=== PATIENT | female | born 1960 | race Caucasian/White ===

== ENCOUNTER 2016-08-07 21:52 | Emergency (ER) | payer BC ==
[~2016-08-07] VITALS: Ht 167.6 cm; Wt 88.5 kg
[2016-08-07 22:29] LABS: BASOPHILS % (AUTO) 1 % (0-10); EOSINOPHILS # (AUTO) 0.2 10^3/uL (0.0-0.3); EOSINOPHILS % (AUTO) 2 % (0-10); LYMPHOCYTES # (AUTO) 1.8 X 10^3 (1.0-4.0); LYMPHOCYTES % (AUTO) 20 % (12-44); MEAN CORPUSCULAR HEMOGLOBIN 28 PG (25-34); MEAN CORPUSCULAR HGB CONC 33 G/DL (32-36); MEAN CORPUSCULAR VOLUME 86 FL (80-99); MEAN PLATELET VOLUME 10.2 FL (7.4-10.4); MONOCYTES # (AUTO) 0.7 X 10^3 (0.0-1.0); MONOCYTES % (AUTO) 8 % (0-12); NEUTROPHILS # (AUTO) 6.2 X 10^3 (1.8-7.8); NEUTROPHILS % (AUTO) 70 % (42-75); PLATELET COUNT 312 10^3/uL (130-400); RED BLOOD COUNT 4.76 10^6/uL (4.35-5.85); RED CELL DISTRIBUTION WIDTH 13.7 % (10.0-14.5); WHITE BLOOD COUNT 8.9 10^3/uL (4.3-11.0)
[2016-08-07] MEDS ORDERED: LIDOCAINE 2% VISCOUS 15 ML UDC PO ONE (22:30)
[2016-08-07] MEDS ORDERED: ANTACID SUSP 30 ML UDC (MYLANTA) PO ONE (22:30)
[2016-08-07] MEDS ORDERED: IBUPROFEN (22:34)
[2016-08-07 22:38] LABS: PROTHROMBIN TIME PATIENT 12.4 SEC (12.2-14.7)
[2016-08-08 00:10] VITALS: BP 112/76
[2016-08-08 01:01] LABS: MYOGLOBIN SERUM 34.4 NG/ML (10.0-92.0)
[2016-08-08 01:03] LABS: ALANINE AMINOTRANSFERASE 23 U/L (0-55); ALBUMIN 4.3 G/DL (3.2-4.5); ANION GAP 11 MMOL/L (5-14); ASPARTATE AMINO TRANSFERASE 20 U/L (5-34); BILIRUBIN,TOTAL 0.4 MG/DL (0.1-1.0); BLOOD UREA NITROGEN 24 MG/DL (7-18); BUN/CREATININE RATIO 25; CALCIUM 9.7 MG/DL (8.5-10.1); CARBON DIOXIDE 22 MMOL/L (21-32); CHLORIDE 108 MMOL/L (98-107); CREATININE SERUM 0.97 MG/DL (0.60-1.30); GFR ESTIMATED 60; GLUCOSE 131 MG/DL (70-105); LIPASE 45 U/L (8-78); MAGNESIUM 2.4 MG/DL (1.8-2.4); SODIUM 141 MMOL/L (135-145); TOTAL PROTEIN 7.1 G/DL (6.4-8.2)
--- NOTE | 2016-08-08 04:00 | ED Chest Pain ---
General Chief Complaint: Chest Pain Stated Complaint: STOMACH AND CHEST PAIN/SOA Nursing Triage Note: AMBULATORY TO ED WITH C/O STOMACH PROBLEMS WITH CHEST PAIN. STOMACH PAIN X 1 MO MARISELA AFTER MEALS WITH FEELING FULLNESS AND TIGHTNESS. NOW REPORTS ABOUT 2 WEEKS OF CHEST TIGHTNESS. NON-SPECIFIC DESCRIPTIONS. Nursing Sepsis Screen: No Definite Risk Source: patient Exam Limitations: no limitations History of Present Illness Time seen by provider: 22:03 Initial Comments This patient presents with complaints of upper abdominal pain and chest tightness. Upper abdominal pain (pain across the upper abdomen) has been present for about a month. Chest tightness has been present for 1-2 weeks. She takes ibuprofen daily for chronic pains and states this helps improve her chest discomfort. She states tramadol worsens her pain. She has been taking omeprazole without much benefit. Pain worsens and she gets a feeling of abdominal fullness after eating. She has nausea without vomiting. She has had one brief episode of shortness of air. She denies tobacco or alcohol use. She does have a history of acid reflux. She also reports problems with chronic fatigue and chronic pain from bulging disks. Allergies and Home Medications Allergies Coded Allergies: No Known Drug Allergies (Unverified , 08/07/16) Home Medications [Ibuprofen] , (Reported) Review of Systems Constitutional: no symptoms reported EENTM: No Symptoms Reported Respiratory: See HPI Cardiovascular: See HPI Gastrointestinal: See HPI Genitourinary: No Symptoms Reported Musculoskeletal: no symptoms reported Skin: no symptoms reported Psychiatric/Neurological: No Symptoms Reported Endocrine: No Symptoms Reported Hematologic/Lymphatic: No Symptoms Reported Past Khlhdhp-Nhkdmw-Djfjrm Hx Patient Social History Alcohol Use: Denies Use Recreational Drug Use: No Smoking Status: Never a Smoker Recent Foreign Travel: No Contact w/Someone Who Travel: No Recent Infectious Disease Expo: No Recent Hopitalizations: No Seasonal Allergies Seasonal Allergies: No Surgeries HX Surgeries: Yes Surgeries: Adenoidectomy, Hysterectomy, Tonsillectomy Respiratory Hx Respiratory Disorders: No Cardiovascular Hx Cardiac Disorders: Yes Cardiac Disorders: Hypotension Neurological Hx Neurological Disorders: No Genitourinary Hx Genitourinary Disorders: No Gastrointestinal Hx Gastrointestinal Disorders: Yes Gastrointestinal Disorders: Gastroesophageal Reflux Musculoskeletal Hx Musculoskeletal Disorders: Yes Musculoskeletal Disorders: Chronic Back Pain (bulging disks) Endocrine Hx Endocrine Disorders: No HEENT HX ENT Disorders: No Cancer Hx Cancer: No Psychosocial Hx Psychiatric Problems: No Integumentary HX Skin/Integumentary Disorder: No Family Medical History Significant Family History: Heart Disease (coronary artery disease and atrial fibrillation) Physical Exam Vital Signs Vital Sign - Last 12Hours 08/07/16 21:58 Temp 99.0 Pulse 79 Resp 16 B/P (MAP) 123/74 Pulse Ox 95 O2 Delivery Room Air Capillary Refill : Less Than 3 Seconds General Appearance: No Apparent Distress, WD/WN HEENT: PERRL/EOMI, Normal ENT Inspection Neck: Normal Inspection Respiratory: Chest Non Tender, Lungs Clear, Normal Breath Sounds, No Accessory Muscle Use, No Respiratory Distress Cardiovascular: Regular Rate, Rhythm, No Edema, No Murmur, Normal Peripheral Pulses Gastrointestinal: Normal Bowel Sounds, Non Tender, Soft Extremity: Normal Inspection, Non Tender, No Calf Tenderness, No Pedal Edema, Other (negative Tyler) Neurologic/Psychiatric: Alert, Oriented x3, No Motor/Sensory Deficits, Normal Mood/Affect, sports marketing coordinator II-XII Norm as Tested Skin: Normal Color, Warm/Dry Progress/Results/Core Measures Results/Orders Lab Results Laboratory Tests Test 08/07/16 22:15 Range/Units White Blood Count 8.9 4.3-11.0 10^3/uL Red Blood Count 4.76 4.35-5.85 10^6/uL Hemoglobin 13.3 11.5-16.0 G/DL Hematocrit 41 35-52 % Mean Corpuscular Volume 86 80-99 FL Mean Corpuscular Hemoglobin 28 25-34 PG Mean Corpuscular Hemoglobin Concent 33 32-36 G/DL Red Cell Distribution Width 13.7 10.0-14.5 % Platelet Count 312 130-400 10^3/uL Mean Platelet Volume 10.2 7.4-10.4 FL Neutrophils (%) (Auto) 70 42-75 % Lymphocytes (%) (Auto) 20 12-44 % Monocytes (%) (Auto) 8 0-12 % Eosinophils (%) (Auto) 2 0-10 % Basophils (%) (Auto) 1 0-10 % Neutrophils # (Auto) 6.2 1.8-7.8 X 10^3 Lymphocytes # (Auto) 1.8 1.0-4.0 X 10^3 Monocytes # (Auto) 0.7 0.0-1.0 X 10^3 Eosinophils # (Auto) 0.2 0.0-0.3 10^3/uL Basophils # (Auto) 0.0 0.0-0.1 10^3/uL Prothrombin Time 12.4 12.2-14.7 SEC INR Comment 1.0 0.8-1.4 Activated Partial Thromboplast Time 26 24-35 SEC Sodium Level 141 135-145 MMOL/L Potassium Level 4.0 3.6-5.0 MMOL/L Chloride Level 108 H 98-107 MMOL/L Carbon Dioxide Level 22 21-32 MMOL/L Anion Gap 11 5-14 MMOL/L Blood Urea Nitrogen 24 H 7-18 MG/DL Creatinine 0.97 0.60-1.30 MG/DL Estimat Glomerular Filtration Rate 60 BUN/Creatinine Ratio 25 Glucose Level 131 H 70-105 MG/DL Calcium Level 9.7 8.5-10.1 MG/DL Magnesium Level 2.4 1.8-2.4 MG/DL Total Bilirubin 0.4 0.1-1.0 MG/DL Aspartate Amino Transf (AST/SGOT) 20 5-34 U/L Alanine Aminotransferase (ALT/SGPT) 23 0-55 U/L Alkaline Phosphatase 104 40-136 U/L Myoglobin 34.4 10.0-92.0 NG/ML Troponin I < 0.30 <0.30 NG/ML Total Protein 7.1 6.4-8.2 G/DL Albumin 4.3 3.2-4.5 G/DL Lipase 45 8-78 U/L My Orders Orders - ELIDA CAMARA MD Cbc With Automated Diff (08/07/16 22:21) Magnesium (08/07/16 22:21) Chest 1 View, Ap/Pa Only (08/07/16 22:21) Ekg Tracing (08/07/16 22:21) Cardiac Profile 1 (08/07/16 22:21) Comprehensive Metabolic Panel (08/07/16 22:21) Myoglobin Serum (08/07/16 22:21) Protime With Inr (08/07/16 22:21) Partial Thromboplastin Time (08/07/16 22:21) O2 (08/07/16 22:21) Monitor-Rhythm Ecg Trace Only (08/07/16 22:21) Saline Lock/Iv-Start (08/07/16 22:21) Lipase (08/07/16 22:21) Lidocaine 2% Viscous 15 Ml (Xylocaine Vi (08/07/16 22:30) Antacid Suspension (Mylanta Suspension (08/07/16 22:30) Medications Given in ED Current Medications Medications Dose Ordered Sig/Bassem Route Start Time Stop Time Status Last Admin Dose Admin Al Hydrox/Mg Hydrox/Simethicone 30 ml ONCE ONCE PO 08/07/16 22:30 08/07/16 22:31 DC 08/07/16 22:30 30 ML Lidocaine HCl 15 ml ONCE ONCE PO 08/07/16 22:30 08/07/16 22:31 DC 08/07/16 22:30 15 ML Vital Signs/I&O Vital Sign - Last 12Hours 08/07/16 08/07/16 08/08/16 21:58 21:58 00:10 Temp 99.0 98.2 Pulse 79 54 Resp 16 16 B/P (MAP) 123/74 Pulse Ox 95 95 O2 Delivery Room Air Room Air Blood Pressure Mean: 90 Progress Note : Progress Note GI cocktail did not improve symptoms. Workup was unremarkable. Patient was dismissed to continue workup as an outpatient. ECG Initial ECG Impression Date: August 07, 2016 Initial ECG Impression Time: 22:09 Initial ECG Rate: 71 Initial ECG Rhythm: Normal Sinus Initial ECG Intervals: Normal Initial ECG Impression: Normal Comment Normal sinus rhythm with no ST elevation or depression. No abnormal intervals or axis deviation. Diagnostic Imaging Diagonstic Imaging: Xray Plain Films/CT/US/NM/MRI: chest Comments Chest x-ray viewed by me. Report not yet available. No acute abnormalities appreciated. Departure Impression Impression: Primary Impression: Upper abdominal pain Additional Impression: Chest tightness Disposition: 01 HOME, SELF-CARE Condition: Improved Departure-Patient Inst. Decision time for Depature: 00:00 Referrals: MERRICK MARTINEZ DO (PCP) Primary Care Physician ELIDA CAMARA MD August 08, 2016 04:00
--- NOTE | 2016-08-08 06:59 | Diagnostic Imaging Report ---
INDICATION: Chest tightness. FINDINGS: Single view examination of the chest fails to reveal evidence of active parenchymal pathology or pleural effusion. The cardiac silhouette is normal. IMPRESSION: Negative chest. Dictated by: Dictated on workstation # [id number]
== END 2016-08-08 00:10 | disposition home or self-care (01) ==
LOC: EDUNIT# 21:52 → ER 21:54
DX: R10.10 Upper abdominal pain, unspecified (principal); R07.89 Other chest pain; I10 Essential (primary) hypertension
CPT/HCPCS: 36415; 71010; 80053; 83690; 83735; 83874; 84484; 85025; 85610; 85730; 93005; 93041

== ENCOUNTER 2016-09-06 10:43 | Outpatient (RCR) | payer BC | END 2016-12-05 | disposition home or self-care (01) | LOC: CARD 10:43 | PROVIDERS: ATTEND Internal Medicine Interventional Cardiology | DX: R00.2 Palpitations (principal); R07.89 Other chest pain | CPT/HCPCS: 93225; 93226 ==

== ENCOUNTER → 2016-09-06 | Outpatient (CLI) | payer BC ==
[~2016-09-06] MED LIST: IBUPROFEN
--- NOTE | 2016-09-07 07:04 | STRESS TEST ---
DATE OF SERVICE: 09/06/2016 STRESS TEST REPORT PRIMARY PHYSICIAN: Dr. Burns. ORDERING PHYSICIAN: Dr. Damian Bennett. DIAGNOSES: Chest tightness, palpitations. PROCEDURE DETAIL: The patient was brought to the stress lab after informed consent was taken. A stress test was performed according to the standard [facility] protocol. Initial EKG showed sinus rhythm at 56 BPM. Blood pressure was 121/65 mmHg. The patient exercised for 9 minutes and 30 seconds and achieved 10.1 metabolic equivalents. The patient achieved 92% of maximum predicted heart rate response. Maximum heart rate was 152 BPM. Maximum blood pressure was 147/65 mmHg. The patient did not complain of any chest tightness, arrhythmias or any ST-T wave changes during the stress test. IMPRESSION AND CONCLUSION: 1. Exercise stress test is negative for ischemia. 2. Excellent functional capacity. 3. Normotensive response to exercise. Job ID: [id number] DocumentID: [id number] Dictated Date: 09/06/2016 12:40:59 Caseworker Protective Services Date: 09/06/2016 13:28:22 Dictated By: DU BENNETT MD
== END ==
LOC: CARD 10:39
PROVIDERS: ATTEND Internal Medicine Interventional Cardiology
DX: R07.89 Other chest pain (principal); R00.2 Palpitations
CPT/HCPCS: 93017

== ENCOUNTER → 2018-01-02 | Outpatient (CLI) | payer BC ==
[~2018-01-02] MED LIST changes: +CATHETER FLUSH 10 ML SYR IV PRN
--- NOTE | 2018-01-02 15:25 | Diagnostic Imaging Report ---
INDICATION: Right upper quadrant pain, dyspepsia.. FINDINGS: The patient was administered 5.08 mCi of Tc 99m Choletec and sequential imaging was performed over the right upper abdomen. There is progressive, homogeneous accumulation of radiotracer within the liver parenchyma. There is filling of the bile ducts and subsequent filling of the gallbladder. There is progressive clearance of activity from the liver parenchyma and accumulation of radiotracer within loops of small bowel. The patient was then administered a fatty meal, utilizing 8 ounces of Ensure. The gallbladder ejection fraction was calculated to be approximately 54%. (Normal values post fatty meal stimulation are 33% or greater.) IMPRESSION: 1. Hepatobiliary scan demonstrates a patent biliary tree. 2. Normal gallbladder ejection fraction of approximately 54%. Dictated by: Dictated on workstation # [id number]
== END ==
LOC: CARD 10:44
PROVIDERS: ATTEND Nurse Practitioner Family
DX: R10.11 Right upper quadrant pain (principal); R10.13 Epigastric pain
CPT/HCPCS: 78227

== ENCOUNTER → 2018-01-21 | Outpatient (CLI) | payer BC ==
[~2018-01-21] MED LIST changes: -CATHETER FLUSH 10 ML SYR IV PRN
== END ==
LOC: CARD 10:41
PROVIDERS: ATTEND Nurse Practitioner Family
DX: R01.1 Cardiac murmur, unspecified (principal); I07.1 Rheumatic tricuspid insufficiency
CPT/HCPCS: 93306

== ENCOUNTER → 2018-03-03 | Outpatient (CLI) | payer BC ==
--- NOTE | 2017-12-09 09:06 | Diagnostic Imaging Report ---
PROCEDURE: US Gallbladder. TECHNIQUE: Multiple real-time grayscale images were obtained over the right upper quadrant in various projections. INDICATION: Abdominal pain and pelvic pain with nausea. The liver is normal in size at 16.9 cm. No discrete liver mass is identified. The gallbladder is without stones or sludge. No wall thickening or biliary ductal dilatation is seen. The pancreas is unremarkable. The right kidney is unremarkable. There is no ascites. IMPRESSION: Unremarkable gallbladder ultrasound. Dictated by: Dictated on workstation # [id number]
--- NOTE | 2017-12-09 09:09 | Diagnostic Imaging Report ---
PROCEDURE: US Non-ob pelvis comp/trans. TECHNIQUE: Multiple realtime grayscale images were obtained of the pelvis in various projections endovaginally. Transabdominal imaging was also performed. INDICATION: Pelvic pain and nausea. Patient underwent hysterectomy five years ago. The uterus is surgically absent. Ovaries are not visualized. No adnexal mass is identified. No free fluid or fluid collection is seen. IMPRESSION: Status post hysterectomy. No adnexal mass or free fluid is identified. Dictated by: Dictated on workstation # [id number]
--- NOTE | 2018-03-03 13:56 | Diagnostic Imaging Report ---
INDICATION: Abdominal, pelvic pain. History of hysterectomy 5 to 7 years ago. TECHNIQUE: Multiple real time figueroa scale sonographic images were obtained of the pelvis, transabdominal and endovaginally. CORRELATION STUDY: None FINDINGS: The uterus not visualized, compatible with hysterectomy. A left ovary is not definitively localized. This is indeterminate as to reason, could be perhaps obscured by bowel. What appears to be right ovary approximately 2 x 1 x 1.2 cm. This has a generally unremarkable appearance but is fairly limited in visualization and assessment. There is suggestion of blood flow to the ovary. Definitive abnormal adnexal mass and/or pelvic fluid does not appear to be present. IMPRESSION: 1. Nonvisualization of the uterus, compatible with hysterectomy. 2. Nonvisualization of the left ovary. This could be owing to obscuration by bowel. Possibly surgical removal is not excluded. 3. Limited visualization of the right ovary, generally unremarkable in its appearance. Dictated by: Dictated on workstation # [id number]
== END ==
LOC: RAD 12-09 07:53
PROVIDERS: ATTEND Nurse Practitioner Family
DX: R10.2 Pelvic and perineal pain (principal); R11.0 Nausea; Z90.710 Acquired absence of both cervix and uterus
CPT/HCPCS: 76705; 76830; 76856

== ENCOUNTER → 2018-09-08 | Outpatient (CLI) | payer BC ==
[2018-09-08 16:01] LABS: BASOPHILS % (AUTO) 0 % (0-10); EOSINOPHILS # (AUTO) 0.1 10^3/uL (0.0-0.3); EOSINOPHILS % (AUTO) 2 % (0-10); HEMATOCRIT 40 % (35-52); HEMOGLOBIN 13.1 G/DL (11.5-16.0); LYMPHOCYTES # (AUTO) 1.3 X 10^3 (1.0-4.0); LYMPHOCYTES % (AUTO) 22 % (12-44); MEAN CORPUSCULAR HEMOGLOBIN 28 PG (25-34); MEAN CORPUSCULAR HGB CONC 33 G/DL (32-36); MEAN CORPUSCULAR VOLUME 86 FL (80-99); MONOCYTES # (AUTO) 0.4 X 10^3 (0.0-1.0); MONOCYTES % (AUTO) 6 % (0-12); NEUTROPHILS % (AUTO) 70 % (42-75); PLATELET COUNT 300 10^3/uL (130-400); RED CELL DISTRIBUTION WIDTH 13.6 % (10.0-14.5); WHITE BLOOD COUNT 5.8 10^3/uL (4.3-11.0)
[2018-09-08 16:51] LABS: BAND NEUTROPHILS 2 %; LYMPHOCYTES % (MANUAL) 20 %; MONOCYTES % (MANUAL) 7 %; NEUTROPHILS % (MANUAL) 69 %
[2018-09-08 16:52] LABS: BASOPHILS % (MANUAL) 0 %; EOSINOPHILS % (MANUAL) 2 %; RBC MORPH NORMAL
--- NOTE | 2018-09-09 09:27 | HISTORY AND PHYSICAL ---
DATE OF SERVICE: EGD HISTORY AND PHYSICAL HISTORY OF PRESENT ILLNESS: The patient is a 57-year-old white female referred by Dr. Tracy Navarro for EGD evaluation for epigastric and right upper quadrant abdominal pain. The patient reports that this has been going on for several years, but has been worse over the past 6 months. In November, she reports that she has pain after eating and even drinking within a minute or two. It does not usually wake her up from sleep. She has had no associated weight loss. Does have some intermittent diarrhea associated with periods of constipation, but has noted no melena or bright red blood per rectum. She has had associated fatigue and states that she is being worked up for "chronic Lyme's disease." She reportedly underwent panendoscopy a little over 2 years ago at which time, her colon was reportedly normal. She had a small hiatal hernia, but could not tell me if she had any evidence for erosive esophagitis. In November, she had a normal gallbladder ultrasound. In December, underwent HIDA scan, which revealed normal ejection fraction of 54% and the patient does not recall that the procedure have caused any abdominal pain or nausea after CCK injection. FAMILY HISTORY: Pertinent for mother who was diagnosed with colon cancer at the age of 70, of natural causes at the age of 91. She is not aware of any family history for other GI tract malignancies or King's esophagus. PAST SURGICAL HISTORY: She went total abdominal hysterectomy in 2010. She thinks that one ovary may have been left and transvaginal ultrasound in February of last year that did reveal what appeared to be a right unremarkable ovary and I could not find the left. SOCIAL HISTORY: She is , employed with no past smoking or any significant drinking history. REVIEW OF SYSTEMS: CONSTITUTIONAL: She denies any night sweats, chills, fever or change in weight. CARDIOVASCULAR: She denies palpitations, syncope, presyncope or chest discomfort. She had a normal exercise stress test three years ago and echocardiogram that revealed mild diastolic dysfunction, otherwise normal in 2018. GASTROINTESTINAL: As noted in the HPI. PULMONARY: She denies any cough, wheezing, shortness of breath, but does note some dyspnea on exertion. PHYSICAL EXAMINATION: GENERAL: Reveals a pleasant white female, weight of 198.6 pounds, BMI of 32. VITAL SIGNS: Blood pressure 120/80. HEENT: Unremarkable. She has a Mallampati class 2 oropharyngeal configuration. Sclerae nonicteric. No evidence for pallor is noted. CHEST: Clear to auscultation. CARDIOVASCULAR: Revealed a regular rate and rhythm without murmur, S3 or S4. ABDOMEN: Soft, supple. Epigastric right upper quadrant and left lower quadrant discomfort to palpation was noted without rebound or guarding. No mass or organomegaly was noted. Bowel sounds are positive. No bruits are noted. EXTREMITIES: Reveal no cyanosis, clubbing or edema. ASSESSMENT AND PLAN: For further evaluation of epigastric abdominal pain with only partial response to proton pump inhibitor therapy in the form of Prilosec, the patient is being set up for EGD evaluation. The procedure was discussed with the patient. The patient also pulled a picture on her phone of a CBC smear, which she was concerned revealed something abnormal like parasites or Lyme's in her blood. Apparently, she had been shown this picture by a so-called chronic Lyme's disease specialist. What it revealed were crenated red cells noted on the picture that just gave a periphery shot. I did take the liberty of getting a CBC with manual differential. This was normal with no evidence for parasites or any other abnormality with normal cell count, platelet count, etc. The patient was reassured. In review of her past medical record and evaluation, a discussion little over 45 minutes in [id number] care time spent. Job ID: [id number] DocumentID: [id number] Dictated Date: 09/09/2018 08:48:16 Study Assistant Date: 09/09/2018 09:14:12 Dictated By: DEVIN ANDRADE MD
== END ==
LOC: LAB 15:36
PROVIDERS: ATTEND Internal Medicine
DX: R53.83 Other fatigue (principal); R10.13 Epigastric pain
CPT/HCPCS: 36415; 85007; 85027

== ENCOUNTER 2018-09-19 05:38 | Outpatient (CLI) | payer BC ==
[~2018-09-19] VITALS: Ht 167.6 cm; Wt 88.5 kg
[2018-09-19] MEDS ORDERED: IBUP-1780 PO (12:09)
== END 2018-09-19 12:13 | disposition home or self-care (01) ==
LOC: PREOP 05:38
PROVIDERS: ATTEND Internal Medicine
DX: Z01.818 Encounter for other preprocedural examination (principal)

== ENCOUNTER 2018-09-26 07:22 | Day surgery (SDC) | payer BC ==
[~2018-09-26] VITALS: Ht 167.6 cm; Wt 88.5 kg
[~2018-09-26 07:22] MED LIST changes: +IBUP-1780 PO
[2018-09-26] MEDS ORDERED: LACTATED RINGERS 1,000 ML IV ONE (07:28)
[2018-09-26] MEDS ORDERED: proPOfol 200 MG/20 ML (DIPRIVAN) VIAL IV ONE ×2 (08:10→08:52)
[2018-09-26] MEDS ORDERED: LACTATED RINGERS 1,000 ML IV STA (08:11)
[2018-09-26 08:15] VITALS: BP 103/62
[2018-09-26] MEDS ORDERED: LIDOCAINE JELLY 2% 6 ML SYRINGE MM PRN (08:15)
[2018-09-26] MEDS ORDERED: HURRICAINE EXT TUBE (BENZOCAINE) XX PRN (08:15)
[2018-09-26] MEDS ORDERED: MIDAZOLAM 2 MG/2 ML (VERSED) VIAL ONE (08:32)
[2018-09-26] MEDS ORDERED: LIDOCAINE JELLY 2% 6 ML SYRINGE ONE (08:38)
[2018-09-26] MEDS ORDERED: HURRICAINE EXT TUBE (BENZOCAINE) ONE (08:38)
--- NOTE | 2018-09-26 08:41 | Pre-Op Note & Conscious Sedat ---
Pre-Operative Progress Note H&P Reviewed The H&P was reviewed, patient examined and no changes noted. Date H&P Reviewed: Sep 26, 2018 Time H&P Reviewed: 07:55 Conscious Sedation Pre-Proced ASA Score 2 For ASA 3 and 4: Consider anesthesia and medical clearance. Also, for patients with a history of failed moderate sedation consider anesthesia. Airway Lungs Heart ASA score ASA 1: a normal healthy patient ASA 2: a patient with a mild systemic disease (mid diabetes, controlled hypertension, obesity ASA 3: a patient with a severe systemic disease that limits activity (angina, COPD, prior Myocardial infarction) ASA 4: a patient with an incapacitating disease that is a constant threat to life (CHF, renal failure) ASA 5: a moribund patient not expected to survive 24 hrs. (ruptured aneurysm) ASA 6: a declared brain- patient whose organs are being harvested. For emergent operations, add the letter E after the classification Mallampati Classification Grade 2 Sedation Plan Analgesia, Amnesia, Plan communicated to team members, Discussed options with patient/fam, Discussed risks with patient/fam The patient is an appropriate candidate to undergo the planned procedure, sedation, and anesthesia. The patient immediately re-assessed prior to indication. DEVIN ANDRADE MD Sep 26, 2018 08:41
[2018-09-26 09:25] VITALS: BP 92/53
[2018-09-26 09:55] VITALS: BP 99/65
[2018-09-26 10:00] VITALS: BP 99/65
--- NOTE | 2018-09-26 13:12 | Anesthesia-General Post-Op ---
General Patient Condition Mental Status/LOC: Same as Preop Cardiovascular: Satisfactory Nausea/Vomiting: Absent Respiratory: Satisfactory Pain: Controlled Complications: Absent Post Op Complications Complications None Follow Up Care/Instructions Patient Instructions None needed. Anesthesia/Patient Condition Patient Condition Patient is doing well, no complaints, stable vital signs, no apparent adverse anesthesia problems. No complications reported per nursing. JAYY ZUÑIGA CRNA Sep 26, 2018 13:12
[2018-09-26] MEDS ORDERED: ONDANSETRON 4 MG/2 ML (SDV) Z0FRAN IVP PRN (14:45)
[2018-09-26] MEDS ORDERED: HYDROmorphone 2 MG/ML VIAL (DILAUDID) IV ONE (14:45)
--- NOTE | 2018-09-26 17:28 | OPERATIVE REPORT ---
DATE OF SERVICE: COLONOSCOPY SUMMARY INDICATION FOR THE PROCEDURE: Epigastric pain and fatigue. The patient was placed in the left lateral decubitus position. The endoscope was inserted in the oral cavity and under direct visualization, the esophagus was intubated. The endoscope was passed down the esophagus through the stomach and the second portion of the duodenum. Careful inspection was made as the endoscope was withdrawn. FINDINGS: The posterior pharynx, epiglottis, arytenoid aperture and true and false vocal cords were unremarkable in appearance. Photographic documentation was obtained. The proximal and mid esophagus were unremarkable. The gastroesophageal junction was proximally placed secondary to a moderate size hiatal hernia about 4-5 cm of the stomach being present above the level of the diaphragm. There was some mild erythema noted at the Z line and one shallow benign appearing ulcer was present involving 10% to 15% of the circumference qualifying for LA grade A erosive esophagitis without evidence to suggest King's change. Several biopsies were obtained and one biopsy for fungal culture and saline was submitted as well. The cardia and fundus of the stomach are unremarkable. There is some mild antral erythema, so biopsy was obtained from the antrum and submitted for Helicobacter. No evidence for peptic ulcer disease was noted. The pylorus, pyloric channel, duodenal bulb and second portion of the duodenum were unremarkable with normal villous architecture and no evidence for peptic ulcer disease. ASSESSMENT: Findings compatible with LA grade A erosive esophagitis are noted, likely due to a moderate size hiatal hernia. The patient stated that her epigastric pain had significantly improved after antibiotic therapy. It was advised that she go back on omeprazole considering erosive esophagitis changes and she sould remain on it indefinitely. She will need eradication of Helicobacter if it is noted on biopsy and there is also as noted above a fungal culture pending. Discussed the importance of non-medication reflux management as well elevating the head of the bed, not eating 3 or 4 hours before bedtime and portion controlling to effect weight loss. I thank you for the referral of this pleasant lady. Job ID: [id number] DocumentID: [id number] Dictated Date: 09/26/2018 11:10:51 Fire Fighting Equipment Specialist Date: 09/26/2018 17:28:15 Dictated By: DEVIN ANDRADE MD MTDD
--- NOTE | 2018-10-03 13:23 | HISTORY AND PHYSICAL ---
DATE OF SERVICE: 09/26/2018 EGD HISTORY AND PHYSICAL HISTORY OF PRESENT ILLNESS: The patient is a 57-year-old white female referred by Dr. Tracy Navarro for EGD evaluation for epigastric and right upper quadrant abdominal pain. The patient reports that this has been going on for several years, but has been worse over the past 6 months. In November, she reports that she has pain after eating and even drinking within a minute or two. It does not usually wake her up from sleep. She has had no associated weight loss. Does have some intermittent diarrhea associated with periods of constipation, but has noted no melena or bright red blood per rectum. She has had associated fatigue and states that she is being worked up for "chronic Lyme's disease." She reportedly underwent panendoscopy a little over 2 years ago at which time, her colon was reportedly normal. She had a small hiatal hernia, but could not tell me if she had any evidence for erosive esophagitis. In November, she had a normal gallbladder ultrasound. In December, underwent HIDA scan, which revealed normal ejection fraction of 54% and the patient does not recall that the procedure have caused any abdominal pain or nausea after CCK injection. FAMILY HISTORY: Pertinent for mother who was diagnosed with colon cancer at the age of 70, of natural causes at the age of 91. She is not aware of any family history for other GI tract malignancies or King's esophagus. PAST SURGICAL HISTORY: She went total abdominal hysterectomy in 2010. She thinks that one ovary may have been left and transvaginal ultrasound in February of last year that did reveal what appeared to be a right unremarkable ovary and I could not find the left. SOCIAL HISTORY: She is , employed with no past smoking or any significant drinking history. REVIEW OF SYSTEMS: CONSTITUTIONAL: She denies any night sweats, chills, fever or change in weight. CARDIOVASCULAR: She denies palpitations, syncope, presyncope or chest discomfort. She had a normal exercise stress test three years ago and echocardiogram that revealed mild diastolic dysfunction, otherwise normal in 2018. GASTROINTESTINAL: As noted in the HPI. PULMONARY: She denies any cough, wheezing, shortness of breath, but does note some dyspnea on exertion. PHYSICAL EXAMINATION: GENERAL: Reveals a pleasant white female, weight of 198.6 pounds, BMI of 32. VITAL SIGNS: Blood pressure 120/80. HEENT: Unremarkable. She has a Mallampati class 2 oropharyngeal configuration. Sclerae nonicteric. No evidence for pallor is noted. CHEST: Clear to auscultation. CARDIOVASCULAR: Revealed a regular rate and rhythm without murmur, S3 or S4. ABDOMEN: Soft, supple. Epigastric right upper quadrant and left lower quadrant discomfort to palpation was noted without rebound or guarding. No mass or organomegaly was noted. Bowel sounds are positive. No bruits are noted. EXTREMITIES: Reveal no cyanosis, clubbing or edema. ASSESSMENT AND PLAN: For further evaluation of epigastric abdominal pain with only partial response to proton pump inhibitor therapy in the form of Prilosec, the patient is being set up for EGD evaluation. The procedure was discussed with the patient. The patient also pulled a picture on her phone of a CBC smear, which she was concerned revealed something abnormal like parasites or Lyme's in her blood. Apparently, she had been shown this picture by a so-called chronic Lyme's disease specialist. What it revealed were crenated red cells noted on the picture that just gave a periphery shot. I did take the liberty of getting a CBC with manual differential. This was normal with no evidence for parasites or any other abnormality with normal cell count, platelet count, etc. The patient was reassured. In review of her past medical record and evaluation, a discussion little over 45 minutes in [id number] care time spent. Job ID: [id number] DocumentID: [id number] Dictated Date: 09/09/2018 08:48:16 [place] Date: 09/09/2018 09:14:12 Dictated By: DEVIN ANDRADE MD <Dictated by DEVIN ANDRADE MD> <Electronically signed by DEVIN ANDRADE MD> 09/14/18 [id number]
== END 2018-09-26 10:00 | disposition home or self-care (01) ==
LOC: ENDO 07:22
PROVIDERS: ATTEND Internal Medicine
DX: K21.0 Gastro-esophageal reflux disease with esophagitis (principal); K44.9 Diaphragmatic hernia without obstruction or gangrene; K22.10 Ulcer of esophagus without bleeding
CPT/HCPCS: 87101

== ENCOUNTER 2022-06-05 11:00 | Outpatient (CLI) | payer BC ==
[~2022-06-05] VITALS: Ht 167.6 cm; Wt 92.1 kg
[2022-06-05] MEDS ORDERED: SUCR1TAB PO (11:20)
[2022-06-05] MEDS ORDERED: FAMO40TA72 PO (11:20)
== END 2022-06-05 11:24 | disposition home or self-care (01) ==
LOC: PREOP 11:00
PROVIDERS: ATTEND Surgery
DX: Z01.818 Encounter for other preprocedural examination (principal)